=== PATIENT | female | born 1975 | race Hispanic/Latino ===

== ENCOUNTER 2017-05-14 18:57 | Emergency (ER) | payer OTHER ==
[~2017-05-14] VITALS: Ht 147.3 cm; Wt 56.0 kg
[~2017-05-14 18:57] MED LIST: CONCEPT DHA PO; DENIES CURRENT MEDS; MACROBID100 MG PO
[2017-05-14] MEDS ORDERED: FIORICET PO (20:39)
[2017-05-14 21:07] VITALS: BP 126/82
== END 2017-05-14 21:07 | disposition home or self-care (01) | DRG 103 ==
LOC: ED 18:57
DX: R51 Headache (principal)

== ENCOUNTER 2021-05-18 08:18 | Emergency (ER) | payer OTHER ==
[~2021-05-18] VITALS: Ht 152.4 cm; Wt 59.0 kg
[~2021-05-18 08:18] MED LIST changes: +FIORICET PO
[2021-05-18 11:01] LABS: HEMOGLOBIN 12.9 g/dl (12.0-16.0); IMMATURE GRANULOCYTES 0.6 % (0.0-5.0); MEAN CELL VOLUME 88.9 fL CALC (80.0-100.0); MEAN CORPUSCULAR HGB 29.3 pG CALC (26.0-32.0); NEUT# 1.65 thou/uL (2.00-7.15); RED BLOOD COUNT 4.4 mill/uL (4.20-5.60); RED CELL DISTRI WIDTH 12.4 % (11.5-15.5)
[2021-05-18 11:16] LABS: ANION GAP 15 (6-22 (CALC)); BILIRUBIN, TOTAL 0.5 mg/dL (0.0-1.4); BUN 13 mg/dL (7-17); BUN/CREATININE RATIO 22 (12-20 (CALC)); CARBON DIOXIDE 28 mmol/l (22-30); CHLORIDE 104 mmol/l (95-108); CREATININE 0.6 mg/dL (0.5-1.0); GFR > 60 ML/MIN (>=60 (CALC)); GFR FOR AFR.AMER. > 60 ML/MIN (>=60 (CALC)); POTASSIUM 4.4 mmol/l (3.5-5.1); SGOT/AST 50 u/l (14-36); SODIUM 142 mmol/l (137-146); TOTAL PROTEIN 7.6 g/dL (6.3-8.2)
[2021-05-18 11:18] LABS: HEMATOCRIT 39.1 % (37.0-47.0)
[2021-05-18 11:22] LABS: ALBUMIN 3.9 g/dL (3.2-5.0); ALKALINE PHOSPHATASE 54 u/l (38-126)
[2021-05-18] MEDS ORDERED: DECADRON4 MG PO (13:44)
[2021-05-18] MEDS ORDERED: ELIQUIS STARTER5 MG PO (13:44)
[2021-05-18] MEDS ORDERED: ZPAK PO (13:44)
[2021-05-18] MEDS ORDERED: ELIQUIS5 MG PO (13:45)
[2021-05-18] MEDS ORDERED: DECADRON6 MG PO (14:26)
[2021-05-18 17:15] VITALS: BP 140/65
== END 2021-05-18 17:15 | disposition home or self-care (01) | DRG 177 ==
LOC: ED 08:18
PROVIDERS: Family Medicine
DX: U07.1 COVID-19 (principal); J12.82 Pneumonia due to coronavirus disease 2019
CPT/HCPCS: Q9967

== ENCOUNTER 2024-02-26 10:18 | Day surgery (SDC) | payer OTHER ==
[~2024-02-26] VITALS: Ht 152.4 cm; Wt 59.9 kg
[~2024-02-26 10:18] MED LIST changes: +CALCIUM CITRATE PLUS PO; +CRESTOR5 MG PO; +DECADRON4 MG PO; +DECADRON6 MG PO; +ELIQUIS STARTER5 MG PO; +ELIQUIS5 MG PO; +ZPAK PO
[2024-02-26] MEDS ORDERED: FAMOTIDINE 10MG/ML 2ML SDV IV ONE (10:26)
[2024-02-26] MEDS ORDERED: LACTATED RINGER'S 1,000 ML IV ONE (10:26)
[2024-02-26] MEDS ORDERED: SODIUM CHLORIDE 0.9% 100 ML IV ONE (10:58)
[2024-02-26] MEDS ORDERED: ceFAZolin Sodium 2 GM/VIAL SDV ONE (10:58)
[2024-02-26] MEDS ORDERED: STERILE WATER FOR IRRIGATION 1,000 ML BTL IR ONE (11:17)
[2024-02-26] MEDS ORDERED: SODIUM CHLORIDE 1,000 ML BTL IR ONE (11:17)
[2024-02-26] MEDS ORDERED: BUPIVACAINE HCL PF 0.5% 30 ML VIAL ONE (11:18)
[2024-02-26] MEDS ORDERED: ACETAMINOPHEN 100 ML IV ONE (13:07)
[2024-02-26 14:02] VITALS: BP 148/84
[2024-02-26] MEDS ORDERED: ONDANSETRON HCl 4 MG/2 ML SDV IV ONE (14:40)
[2024-02-26] MEDS ORDERED: PROPOFOL 200 MG/20 ML VIAL IV ONE (14:40)
[2024-02-26] MEDS ORDERED: MIDAZOLAM HCL 2 MG/2 ML VIAL IV ONE (14:40)
[2024-02-26] MEDS ORDERED: LIDOCAINE HCL 2% 2ML SDV IV ONE (14:40)
== END 2024-02-26 13:43 | disposition home or self-care (01) | DRG 501 ==
LOC: ORM 10:18
PROVIDERS: ATTEND Podiatrist Foot & Ankle Surgery
PROC: 0LBV0ZZ Excision of Right Foot Tendon, Open Approach (ICD-10-PCS; principal; 2024-02-26)
DX: M67.471 Ganglion, right ankle and foot (principal); L03.115 Cellulitis of right lower limb
CPT/HCPCS: J0131; J0690